=== PATIENT | female | born 1980 | race Caucasian/White ===

== ENCOUNTER 2018-09-14 22:27 | Emergency (ER) | payer SELFPAY ==
--- NOTE | 2018-09-15 00:06 | ER ---
Nurse's Notes [facility] Name: Dejah López Age: 38 yrs Sex: Female : 1980 Arrival Date: 09/14/2018 Time: 22:36 Bed 7 Private MD: Diagnosis: Influenza due to identified novel influenza A virus Presentation: 09/14 22:54 Presenting complaint: Patient states: "I am having congestion and shortness of breath. jd3 I am coughing and this is causing some chest pain.". Transition of care: patient was not received from another setting of care. Onset of symptoms was September 14, 2018. Risk Assessment: Do you want to hurt yourself or someone else? Patient reports no desire to harm self or others. Initial Sepsis Screen: Does the patient meet any 2 criteria? No. Patient's initial sepsis screen is negative. Does the patient have a suspected source of infection? No. Patient's initial sepsis screen is negative. Care prior to arrival: None. 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 - Social history:: Smoking status: Patient uses tobacco products, smokes one pack cigarettes per day. - Ebola Screening: : Patient negative for fever greater than or equal to 101.5 degrees Fahrenheit, and additional compatible Ebola Virus Disease symptoms. Screenin:55 Abuse screen: Denies threats or abuse. Denies injuries from another. Nutritional aa1 screening: No deficits noted. Tuberculosis screening: No symptoms or risk factors identified. Fall Risk None identified. Assessment: 23:55 General: Appears in no apparent distress. comfortable, Behavior is calm, cooperative, aa1 appropriate for age. Pain: Complains of pain in chest Pain does not radiate. Quality of pain is described as aching. Neuro: Level of Consciousness is awake, alert, obeys commands, Oriented to person, place, time, situation, Gait is steady. Cardiovascular: Heart tones S1 S2 present Rhythm is regular. Respiratory: Reports cough that is pain with cough Airway is patent Respiratory effort is even, unlabored, Respiratory pattern is regular, symmetrical. GI: No signs and/or symptoms were reported involving the gastrointestinal system. : No signs and/or symptoms were reported regarding the genitourinary system. EENT: No signs and/or symptoms were reported regarding the EENT system. Derm: Skin is intact, is healthy with good turgor, Skin is pink, warm \\T\\ dry. Musculoskeletal: Circulation, motion, and sensation intact. Capillary refill < 3 seconds. 09/15 00:20 Reassessment: Patient appears in no apparent distress at this time. Patient is alert, aa1 oriented x 3, equal unlabored respirations, skin warm/dry/pink. Discussed d/c \\T\\ f/u instructions with pt \\T\\ significant other; denies questions or concerns at this time. Vital Signs: 09/14 22:53 BP 113 / 80; Pulse 101; Resp 17 S; Temp 99.0(O); Pulse Ox 94% on R/A; Weight 72.57 kg jd3 (R); Height 5 ft. 2 in. (157.48 cm) (R); Pain 10/10; 09/15 00:20 BP 129 / 83; Pulse 99; Resp 18; Temp 98.9; Pulse Ox 95% on R/A; Pain 8/10; aa1 02 22:53 Body Mass Index 29.26 (72.57 kg, 157.48 cm) j ED Course: 09/14 22:36 Patient arrived in ED. es 22:56 Triage completed. jd3 22:58 Arm band placed on. jd3 23:43 Donna Mendoza FNP-C is [facility]. kb 23:43 Jose Sofia MD is Attending Physician. kb 23:53 Nydia Pizarro RN is Primary Nurse. aa1 23:55 Patient has correct armband on for positive identification. Bed in low position. Call aa1 light in reach. Pulse ox on. NIBP on. 23:55 Patient maintains SpO2 saturation greater than 95% on room air. aa1 09/15 00:20 No provider procedures requiring assistance completed. Patient did not have IV access aa1 during this emergency room visit. Administered Medications: 00:22 Drug: Tamiflu 75 mg Route: PO; aa1 00:22 Follow up: Response: Medication administered at discharge. aa1 00:22 Drug: Ibuprofen 800 mg Route: PO; aa1 00:22 Follow up: Response: Medication administered at discharge. aa1 Outcome: 00:05 Discharge ordered by . arnulfo 00:20 Discharged to home ambulatory, with significant other. aa1 00:20 Condition: good 00:20 Discharge instructions given to patient, significant other, Instructed on discharge instructions, follow up and referral plans. medication usage, Demonstrated understanding of instructions, follow-up care, medications, Prescriptions given X 1. 00:23 Patient left the ED. aa1 Signatures: Donna Mendoza, PRECAST MOLDER-C PRECAST MOLDER-Nydia Alvarado, RN RN aa1 Caitie Chan Jonathon RN RN jd3
--- NOTE | 2018-09-15 00:06 | EDPHYS ---
Physician Documentation [facility] Name: Dejah López Age: 38 yrs Sex: Female : 1980 Arrival Date: 09/14/2018 Time: 22:36 Bed 7 Private MD: ED Physician Joes Sofia HPI: 09/15 00:19 This 38 yrs old Female presents to ER via Ambulatory with complaints of Chest kb Pain, body ache. 00:19 The patient or guardian reports cough, that is intermittent, described as moderate, kb with no sputum, flu symptoms, arthralgias, low-grade fever, myalgias, no appetite. Onset: The symptoms/episode began/occurred yesterday. Severity of symptoms: At their worst the symptoms were moderate, in the emergency department the symptoms are unchanged. Modifying factors: The symptoms are alleviated by nothing, the symptoms are aggravated by nothing. Associated signs and symptoms: Pertinent positives: fever, rhinorrhea, sore throat, Pertinent negatives: chest pain, diarrhea, ear ache, nausea, vomiting. The patient has not experienced similar symptoms in the past. The patient has not recently seen a physician. 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 - Social history:: Smoking status: Patient uses tobacco products, smokes one pack cigarettes per day. - Ebola Screening: : Patient negative for fever greater than or equal to 101.5 degrees Fahrenheit, and additional compatible Ebola Virus Disease symptoms. ROS: 09/15 00:17 ENT: Negative for injury, pain, and discharge, Neck: Negative for injury, pain, and kb swelling, Cardiovascular: Negative for chest pain, palpitations, and edema, Abdomen/GI: Negative for abdominal pain, nausea, vomiting, diarrhea, and constipation, Back: Negative for injury and pain, MS/Extremity: Negative for injury and deformity, Skin: Negative for injury, rash, and discoloration, Neuro: Negative for headache, weakness, numbness, tingling, and seizure. Constitutional: Positive for body aches, chills, fatigue, fever, malaise, Negative for poor PO intake, weight loss. Respiratory: Positive for cough, Negative for dyspnea on exertion, hemoptysis, orthopnea, pleurisy, shortness of breath, sputum production, wheezing. Exam: 00:17 Constitutional: This is a well developed, well nourished patient who is awake, alert, kb and in no acute distress. Head/Face: Normocephalic, atraumatic. ENT: Nares patent. No nasal discharge, no septal abnormalities noted. Tympanic membranes are normal and external auditory canals are clear. Oropharynx with no redness, swelling, or masses, exudates, or evidence of obstruction, uvula midline. Mucous membranes moist. Neck: Trachea midline, no thyromegaly or masses palpated, and no cervical lymphadenopathy. Supple, full range of motion without nuchal rigidity, or vertebral point tenderness. No Meningismus. Chest/axilla: Normal chest wall appearance and motion. Nontender with no deformity. No lesions are appreciated. Cardiovascular: Regular rate and rhythm with a normal S1 and S2. No gallops, murmurs, or rubs. Normal PMI, no JVD. No pulse deficits. Respiratory: Lungs have equal breath sounds bilaterally, clear to auscultation and percussion. No rales, rhonchi or wheezes noted. No increased work of breathing, no retractions or nasal flaring. Abdomen/GI: Soft, non-tender, with normal bowel sounds. No distension or tympany. No guarding or rebound. No evidence of tenderness throughout. Skin: Warm, dry with normal turgor. Normal color with no rashes, no lesions, and no evidence of cellulitis. MS/ Extremity: Pulses equal, no cyanosis. Neurovascular intact. Full, normal range of motion. Neuro: Awake and alert, GCS 15, oriented to person, place, time, and situation. Cranial nerves II-XII grossly intact. Motor strength 5/5 in all extremities. Sensory grossly intact. Cerebellar exam normal. Normal gait. Vital Signs: 09/14 22:53 BP 113 / 80; Pulse 101; Resp 17 S; Temp 99.0(O); Pulse Ox 94% on R/A; Weight 72.57 kg jd3 (R); Height 5 ft. 2 in. (157.48 cm) (R); Pain 10/10; 09/15 00:20 BP 129 / 83; Pulse 99; Resp 18; Temp 98.9; Pulse Ox 95% on R/A; Pain 8/10; aa1 09/14 22:53 Body Mass Index 29.26 (72.57 kg, 157.48 cm) jd3 MDM: 09/14 23:43 Patient medically screened. kb 09/15 00:18 Data reviewed: vital signs, nurses notes. Data interpreted: Pulse oximetry: on room air kb is 98 %. Interpretation: normal. Counseling: I had a detailed discussion with the patient and/or guardian regarding: the historical points, exam findings, and any diagnostic results supporting the discharge/admit diagnosis, lab results, the need for outpatient follow up, a family practitioner, to return to the emergency department if symptoms worsen or persist or if there are any questions or concerns that arise at home. 09/14 23:03 Order name: Flu; Complete Time: 23:46 kb Administered Medications: 00:22 Drug: Tamiflu 75 mg Route: PO; aa1 00:22 Follow up: Response: Medication administered at discharge. aa1 00:22 Drug: Ibuprofen 800 mg Route: PO; aa1 00:22 Follow up: Response: Medication administered at discharge. aa1 Disposition: 12:27 Co-signature as Attending Physician, Jose Sofia MD I agree with the assessment and [facility] plan of care. Disposition: 09/15/18 00:05 Discharged to Home. Impression: Influenza due to identified novel influenza A virus. - Condition is Stable. - Discharge Instructions: Influenza, Adult, [id number]. - Prescriptions for Tamiflu 75 mg Oral Capsule - take 1 capsule by ORAL route every 12 hours for 5 days; 10 capsule. - Medication Reconciliation Form, Thank You Letter, Antibiotic Education, Prescription Opioid Use form. - Follow up: Emergency Department; When: As needed; Reason: Worsening of condition. Follow up: Private Physician; When: 2 - 3 days; Reason: Recheck today's complaints, Continuance of care, Re-evaluation by your physician. Signatures: Dispatcher [employer] EDMS Donna Mendoza, Nydia Mcginnis RN RN aa1 Jose Sofia MD MD cha Davies, Jonathon, RN RN jd3 Corrections: (The following items were deleted from the chart) 00:23 00:05 09/15/2018 00:05 Discharged to Home. Impression: Influenza due to identified aa1 novel influenza A virus. Condition is Stable. Forms are Medication Reconciliation Form, Thank You Letter, Antibiotic Education, Prescription Opioid Use. Follow up: Emergency Department; When: As needed; Reason: Worsening of condition. Follow up: Private Physician; When: 2 - 3 days; Reason: Recheck today's complaints, Continuance of care, Re-evaluation by your physician. kb
[2018-09-15] MEDS ORDERED: IBUPROFEN 400 MG TAB ONE (00:28)
[2018-09-15] MEDS ORDERED: OSELTAMIVIR 75 MG CAP ONE (00:28)
== END 2018-09-15 00:23 | disposition home or self-care (01) ==
LOC: ER 22:27
DX: J10.1 Influenza due to other identified influenza virus with other respiratory manifestations (principal); F17.210 Nicotine dependence, cigarettes, uncomplicated; Z88.5 Allergy status to narcotic agent
CPT/HCPCS: 87804; 99284

== ENCOUNTER 2019-01-01 11:43 | Emergency (ER) | payer SELFPAY ==
[2019-01-01] MEDS ORDERED: KETOROLAC 30 MG/ML INJ ONE (12:43)
--- NOTE | 2019-01-01 12:58 | EDPHYS ---
Physician Documentation [facility] Name: Dejah López Age: 38 yrs Sex: Female : 1980 Arrival Date: 01/01/2019 Time: 11:48 Bed 17 Private MD: ED Physician Jose Sofia HPI: 01/01 12:12 This 38 yrs old Female presents to ER via Ambulatory with complaints of Foot jerald Injury. 12:12 The patient presents with pain, tenderness. The complaints affect the left foot, jerald lateral side of left foot, lateral side of left heel, medial aspect of left heel, instep of left foot, arch of left foot and heel of left foot. Context: The problem was sustained at an unknown location. Onset: The symptoms/episode began/occurred yesterday. Modifying factors: The symptoms are alleviated by elevation of extremity, the symptoms are aggravated by weight bearing, movement, wearing shoes. Associated signs and symptoms: The patient has no apparent associated signs or symptoms. Severity of symptoms: At their worst the symptoms were moderate, in the emergency department the symptoms are unchanged. The patient has not experienced similar symptoms in the past. 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 - Social history:: Smoking status: Patient uses tobacco products, smokes one pack cigarettes per day. - Ebola Screening: : No symptoms or risks identified at this time. - Family history:: not pertinent. ROS: 12:12 Constitutional: Negative for fever, chills, and weight loss, Eyes: Negative for injury, jerald pain, redness, and discharge, ENT: Negative for injury, pain, and discharge, Neck: Negative for injury, pain, and swelling, Cardiovascular: Negative for chest pain, palpitations, and edema, Respiratory: Negative for shortness of breath, cough, wheezing, and pleuritic chest pain, Abdomen/GI: Negative for abdominal pain, nausea, vomiting, diarrhea, and constipation, Back: Negative for injury and pain, : Negative for injury, bleeding, discharge, and swelling, Skin: Negative for injury, rash, and discoloration, Neuro: Negative for headache, weakness, numbness, tingling, and seizure, Psych: Negative for depression, anxiety, suicide ideation, homicidal ideation, and hallucinations, Allergy/Immunology: Negative for hives, rash, and allergies, Endocrine: Negative for neck swelling, polydipsia, polyuria, polyphagia, and marked weight changes, Hematologic/Lymphatic: Negative for swollen nodes, abnormal bleeding, and unusual bruising. 12:12 MS/extremity: Positive for decreased range of motion, pain, of the left foot. Exam: 12:12 Constitutional: This is a well developed, well nourished patient who is awake, alert, jerald and in no acute distress. Head/Face: Normocephalic, atraumatic. Eyes: Pupils equal round and reactive to light, extra-ocular motions intact. Lids and lashes normal. Conjunctiva and sclera are non-icteric and not injected. Cornea within normal limits. Periorbital areas with no swelling, redness, or edema. ENT: Nares patent. No nasal discharge, no septal abnormalities noted. Tympanic membranes are normal and external auditory canals are clear. Oropharynx with no redness, swelling, or masses, exudates, or evidence of obstruction, uvula midline. Mucous membranes moist. Neck: Trachea midline, no thyromegaly or masses palpated, and no cervical lymphadenopathy. Supple, full range of motion without nuchal rigidity, or vertebral point tenderness. No Meningismus. Chest/axilla: Normal chest wall appearance and motion. Nontender with no deformity. No lesions are appreciated. Cardiovascular: Regular rate and rhythm with a normal S1 and S2. No gallops, murmurs, or rubs. Normal PMI, no JVD. No pulse deficits. Respiratory: Lungs have equal breath sounds bilaterally, clear to auscultation and percussion. No rales, rhonchi or wheezes noted. No increased work of breathing, no retractions or nasal flaring. Abdomen/GI: Soft, non-tender, with normal bowel sounds. No distension or tympany. No guarding or rebound. No evidence of tenderness throughout. Back: No spinal tenderness. No costovertebral tenderness. Full range of motion. Skin: Warm, dry with normal turgor. Normal color with no rashes, no lesions, and no evidence of cellulitis. Neuro: Awake and alert, GCS 15, oriented to person, place, time, and situation. Cranial nerves II-XII grossly intact. Motor strength 5/5 in all extremities. Sensory grossly intact. Cerebellar exam normal. Normal gait. Psych: Awake, alert, with orientation to person, place and time. Behavior, mood, and affect are within normal limits. 12:12 Musculoskeletal/extremity: Extremities: noted in the left foot: decreased ROM, pain, ROM: full active range of motion, full passive range of motion, Circulation is intact in all extremities. Sensation intact. Compartment Syndrome exam of affected extremity: is normal. Joints: All joints appear normal with full range of motion. Weight bearing: is unable to bear weight, DVT Exam: negative Homans' sign noted on exam, no appreciated bluish discoloration, no erythema, no increased warmth, pain, tenderness, Calves: have equal circumference, are not equal in size: Vital Signs: 12:14 BP 109 / 72; Pulse 72; Resp 16 S; Temp 99.6(O); Pulse Ox 97% on R/A; aa5 MDM: 11:59 Patient medically screened. [facility] 12:15 Data reviewed: vital signs, nurses notes, radiologic studies, plain films. [facility] 01/01 12:13 Order name: Foot Left 3 View XRAY [facility] 01/01 12:13 Order name: Ice pack; Complete Time: 12:53 [facility] 01/01 12:13 Order name: Post-op shoe; Complete Time: 12:53 [facility] 01/01 12:13 Order name: Crutches; Complete Time: 12:53 [facility] Administered Medications: 12:48 Drug: TORadol 60 mg Route: IM; Site: right gluteus; em 13:26 Follow up: Response: No adverse reaction; Pain is decreased em Disposition: 01/01/19 12:57 Discharged to Home. Impression: Unspecified injury of left foot. - Condition is Stable. - Discharge Instructions: Plantar Fasciitis, Foot Pain. - Prescriptions for Diclofenac Sodium 75 mg Oral Tablet, Delayed Release (E.C.) - take 1 tablet by ORAL route 2 times per day; 20 tablet. Medrol (Regino) 4 mg Oral Tablets, Dose Pack - take 1 tablet by ORAL route as directed - follow package instructions; 1 packet. - Medication Reconciliation Form, Thank You Letter, Antibiotic Education, Prescription Opioid Use, Work release form, Family Work Release form. - Follow up: Private Physician; When: 2 - 3 days; Reason: Recheck today's complaints, Continuance of care, Re-evaluation by your physician. Follow up: Aries Batista MD; When: 2 - 3 days; Reason: Recheck today's complaints, Re-evaluation by your physician. - Problem is new. - Symptoms have improved. Signatures: Dispatcher [employer] EDJose Nash MD MD cha Munoz, Edgar, ENGRAVER APPRENTICE DECORATIVE ENGRAVER APPRENTICE DECORATIVE Christelle Carrillo, RN RN aa5 Corrections: (The following items were deleted from the chart) 13:29 12:57 01/01/2019 12:57 Discharged to Home. Impression: Unspecified injury of left foot. em Condition is Stable. Discharge Instructions: Plantar Fasciitis, Foot Pain. Prescriptions for Diclofenac Sodium 75 mg Oral Tablet, Delayed Release (E.C.) - take 1 tablet by ORAL route 2 times per day; 20 tablet, Medrol (Regino) 4 mg Oral Tablets, Dose Pack - take 1 tablet by ORAL route as directed - follow package instructions; 1 packet. and Forms are Medication Reconciliation Form, Thank You Letter, Antibiotic Education, Prescription Opioid Use. Follow up: Private Physician; When: 2 - 3 days; Reason: Recheck today's complaints, Continuance of care, Re-evaluation by your physician. Follow up: Aries Batista; When: 2 - 3 days; Reason: Recheck today's complaints, Re-evaluation by your physician. Problem is new. Symptoms have improved. jerald
--- NOTE | 2019-01-01 12:58 | ER ---
Nurse's Notes [facility] Name: Dejah López Age: 38 yrs Sex: Female : 1980 Arrival Date: 01/01/2019 Time: 11:48 Bed 17 Private MD: Diagnosis: Unspecified injury of left foot Presentation: 01/01 11:56 Presenting complaint: Patient states: "I was at the graduation yesterday and my left aa5 foot started hurting". Pt c/o left foot pain, denies known injury. 11:56 Transition of care: patient was not received from another setting of care. Onset of aa5 symptoms was December 31, 2018. Risk Assessment: Do you want to hurt yourself or someone else? Patient reports no desire to harm self or others. Care prior to arrival: None. 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 - Social history:: Smoking status: Patient uses tobacco products, smokes one pack cigarettes per day. - Ebola Screening: : No symptoms or risks identified at this time. - Family history:: not pertinent. Screenin:40 Abuse screen: Denies threats or abuse. Nutritional screening: No deficits noted. em Tuberculosis screening: No symptoms or risk factors identified. Fall Risk None identified. Assessment: 12:40 General: Appears in no apparent distress. comfortable, Behavior is calm, cooperative. em Pain: Complains of pain in lateral side of left heel and heel of left foot Pain currently is 10 out of 10 on a pain scale. Neuro: Level of Consciousness is awake, alert, obeys commands, Oriented to person, place, time, situation. Cardiovascular: Capillary refill < 3 seconds Patient's skin is warm and dry. Respiratory: Airway is patent Respiratory effort is even, unlabored, Respiratory pattern is regular, symmetrical. Derm: Skin is intact, is healthy with good turgor, Skin is pink, warm \\T\\ dry. Musculoskeletal: Capillary refill < 3 seconds, Range of motion: limited in left ankle Swelling absent. Injury Description: denies injury. 12:50 Reassessment: Patient appears in no apparent distress at this time. I agree with above iw assessment by Tez Shaffer LVN. 13:29 Reassessment: Patient appears in no apparent distress at this time. Patient and/or em family updated on plan of care and expected duration. Pain level reassessed. Patient is alert, oriented x 3, equal unlabored respirations, skin warm/dry/pink. Patient states feeling better. Vital Signs: 12:14 BP 109 / 72; Pulse 72; Resp 16 S; Temp 99.6(O); Pulse Ox 97% on R/A; aa5 ED Course: 11:48 Patient arrived in ED. rg4 11:56 Wesley Kelly, BRIAN is Primary Nurse. 11:56 Arm band placed on Patient placed in an exam room, on a stretcher. aa5 11:59 Jose Sofia MD is Attending Physician. [facility] 12:11 Triage completed. aa5 12:17 Tez Shaffer LVN is Primary Nurse. em 12:40 Patient has correct armband on for positive identification. Bed in low position. Call em light in reach. Adult w/ patient. Pulse ox on. NIBP on. 12:42 X-ray completed. Portable x-ray completed in exam room. Patient tolerated procedure la2 well. 12:43 Foot Left 3 View XRAY In Process Unspecified. EDMS 12:57 Aries Batista MD is Referral Physician. [facility] 13:08 No provider procedures requiring assistance completed. Patient did not have IV access em during this emergency room visit. Administered Medications: 12:48 Drug: TORadol 60 mg Route: IM; Site: right gluteus; em 13:26 Follow up: Response: No adverse reaction; Pain is decreased em Outcome: 12:57 Discharge ordered by . [facility] 13:29 Discharged to home with crutches, with family. em 13:29 Condition: good 13:29 Discharge instructions given to patient, family, Instructed on discharge instructions, follow up and referral plans. medication usage, Demonstrated understanding of instructions, follow-up care, medications, crutch walking, Prescriptions given X 2. 13:29 Patient left the ED. em Signatures: Dispatcher [employer] EDDC Jose Sofia MD MD cha Munoz, Edgar, LVN ARCHITECTURAL INTERN Nikki De La Cruz, RN RN Christelle Perez, BRIAN RN aa5 Wesley Kelly, RN RN Randi Burciaga4 Beatrice Lui
--- NOTE | 2019-01-01 13:22 | RAD REPORT ---
EXAM DESCRIPTION: RAD - Foot Left 3 View - 01/01/2019 12:45 pm CLINICAL HISTORY: PAIN COMPARISON: No comparisons FINDINGS: No fracture or dislocation seen. Small posterior calcaneal spur.
== END 2019-01-01 13:29 | disposition home or self-care (01) ==
LOC: ER 11:43
DX: S99.922A Unspecified injury of left foot, initial encounter (principal); Z88.5 Allergy status to narcotic agent; F17.210 Nicotine dependence, cigarettes, uncomplicated
CPT/HCPCS: 96372; 99284

== ENCOUNTER 2020-11-20 00:28 | Emergency (ER) | payer SELFPAY ==
[2020-11-20] MEDS ORDERED: IBUPROFEN 400 MG TAB ONE (01:42)
[2020-11-20] MEDS ORDERED: MEPERIDINE HCL 25 MG/ML SYR ONE ×2 (03:02→04:28)
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
[2020-11-20 04:39] VITALS: TEMP 98.3
[2020-11-20 04:42] VITALS: BP 133/91; O2SAT 99
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
== END 2020-11-20 04:33 | disposition home or self-care (01) ==
LOC: ER 00:28
DX: S20.412A Abrasion of left back wall of thorax, initial encounter (principal); R21 Rash and other nonspecific skin eruption; V03.00XA Pedestrian on foot injured in collision with car, pick-up truck or van in nontraffic accident, initial encounter
CPT/HCPCS: 71260; 74177; 82565; 96374; 99284; J2175; Q9967